=== PATIENT | female | born 1975 | race African-American/Black ===

== ENCOUNTER 2020-06-10 15:44 | Outpatient (CLI) | payer BC, SELFPAY ==
--- NOTE | ~2020-06-10 | US_ITS ---
EXAMINATION: US venous doppler [facility] EXAM DATE: 06/10/2020 16:19 INDICATION: Left leg swelling. TECHNIQUE: Multiple grayscale, color flow and Doppler images of the left lower extremity deep venous system were obtained and reviewed. There is no prior study for comparison. FINDINGS: The left common femoral, femoral and profunda veins demonstrate normal color flow, respirat ory variation, augmentation and compressibility. Compressibility, color flow confirmed within the le ft popliteal, posterior tibial, peroneal, and greater saphenous veins. IMPRESSION: 1. No left lower extremity deep venous thrombosis. Reviewed, dictated and finalized at location A. O [employer]
== END 2020-06-10 15:45 | disposition home or self-care (01) ==
LOC: ANHIMG 15:49
PROVIDERS: PCP Student in an Organized Health Care Education/Training Program; Visit Provider Student in an Organized Health Care Education/Training Program
DX: M79.89 Other specified soft tissue disorders (principal)
CPT/HCPCS: 93971